=== PATIENT | female | born 1980 | race Caucasian/White ===

== ENCOUNTER 2019-10-05 06:22 | Emergency (ER) | payer OTHER, SELFPAY ==
--- NOTE | ~2019-10-05 | CT_ITS ---
EXAMINATION: CT abdomen pelvis w con DATE: 10/05/2019 08:41 INDICATION: Abdominal pain TECHNIQUE: Computed tomography (CT) of the abdomen and pelvis was performed with 100 cc Omnipaque 350 intravenous contrast. Automated exposure control and iterative reconstruction technique were employe d. Exam dose: 1559.42 mGy-cm total exam DLP. COMPARISON: None. FINDINGS: The lung bases are clear. Normal heart size. No pericardial or pleural effusion. There are multiple faceted gallstones measuring up to approximately 1 cm size. There is borderline ga llbladder wall thickening. There is minimal pericholecystic fat stranding. Acute sinusitis is not exc luded. Recommend clinical correlation and perhaps gallbladder ultrasound and/or radionuclide hepatobi liary scan. No hepatic space-occupying mass lesion or bile duct dilatation. No pancreatic mass lesion, calcificat ion or ductal dilatation. Normal splenic size. Normal morphology of the adrenal glands. Normal caliber of the abdominal aorta. The right kidney is absent. No left renal mass lesion or scarring or left-sided urinary tract calculu s or hydroureteronephrosis. The urinary bladder is unremarkable. Uterus and adnexal areas are unremar kable other than an IUD in the uterus. No intraperitoneal or retroperitoneal or pelvic mass lesion or adenopathy or ascites. Normal appendix. Diverticulosis of the sigmoid colon; no CT evidence of diverticulitis. No bowel obst ruction, bowel wall thickening, pneumatosis or intraperitoneal free air. Included skeletal structures are unremarkable. IMPRESSION: Multiple gallstones, borderline gallbladder wall thickening, mild pericholecystic fat st randing, suggesting possible acute cholecystitis. Recommend clinical correlation. Gallbladder ultraso und and/or radionuclide hepatobiliary scan may be of benefit as clinically appropriate. Diverticulosis of the sigmoid colon Absent right kidney Reviewed, dictated and finalized at [facility]. Reviewed, dictated and finalized at [facility]. IMPRESSION: Multiple gallstones, borderline gallbladder wall thickening, mild pericholecystic fat stranding, suggesting possible acute cholecystitis. Recomme nd clinical correlation. Gallbladder ultrasound and/or radionuclide hepatobilia ry scan may be of benefit as clinically appropriate. Diverticulosis of the sigmoid colon Absent right kidney
[2019-10-05 06:25] VITALS: BP 205/123; PULSE 100; RESP 18; TEMP 36.2; O2SAT 98
[2019-10-05 07:08] LABS: Basophils Absolute Auto 0.2 K/mm3 (0.0-0.1); Basophils Percent Auto 1.4 % (0.2-1.2); Eosinophils Absolute Auto 0.2 K/mm3 (0-0.3); Eosinophils Percent Auto 1.9 % (0-4.4); Hemoglobin 15.7 g/dL (12.0-15.0); Immature Granulocyte Absolute 0.09 K/mm3 (0.00-0.031); Immature Granulocyte Percent A 0.8 % (0-0.5); Lymphocytes Absolute Auto 1.38 K/mm3 (0.9-3.2); Lymphocytes Percent Auto 11.6 % (18.3-44.2); Mean Corpuscular HGB Conc 33.4 g/dl (32-36); Mean Corpuscular Hemoglobin 29.6 pg (26-34); Mean Corpuscular Volume 88.7 fl (80-100); Mean Platelet Volume 10.3 fl (7.4-10.4); Monocytes Absolute Auto 0.7 K/mm3 (0.1-0.6); Monocytes Percent Auto 5.7 % (2.6-8.5); Neutrophils Absolute Auto 9.4 K/mm3 (1.3-6.7); Neutrophils Percent Auto 78.6 % (45.5-73.1); Platelet Count Result 251 k/mm3 (150-375); Red Cell Distribution Width 13.3 % (11.5-14.5); White Blood Count 11.9 K/mm3 (4.5-10.0)
[2019-10-05 07:16] LABS: Add Urine Microscopic? YES; Appearance Urine Cloudy (Clear); Bilirubin Urine 1+ (Negative); Blood Urine Negative (Negative); Color Urine Amber (Yellow); Glucose Urine UA Negative (Negative); Hyaline Casts Urine 50+ /lpf; Ketones Urine Trace mg/dL (Negative); Leukocyte Esterase Ur 2+ LEU/UL (Negative); Mucus Urine Few /lpf; Nitrate Urine Negative (Negative); Protein Urine 3+ mg/dL (Negative); RBC Urine 21-50 /hpf (0-2); Specific Grav Ur 1.029 (1.001-1.035); Squamous Epithelial Cell Urine Many /hpf (Few); WBC Clumps Urine Present /HPF; WBC Urine >75 /hpf
[2019-10-05 07:21] LABS: Alanine Aminotransferase 85 U/L (4-35); Albumin Level 4.4 g/dL (3.5-5.1); Alkaline Phosphatase 245 U/L (38-126); Aspartate Amino Transferase 67 U/L (14-36); Bilirubin,Total 0.7 mg/dL (0.2-1.3); Blood Urea Nitrogen 18 mg/dL (7-17); Calcium 9.5 mg/dL (8.4-10.2); Carbon Dioxide 25 mmol/L (22-30); Chloride 103 mmol/L (98-107); Estimated CRCL calculation 81 ml/min; Estimated Glomerular Filt Rate 50; Glucose 204 mg/dL (65-105); Lipase 161 U/L (23-300); Potassium 4.5 mmol/L (3.4-5.0); Sodium 135 mmol/L (137-145)
[2019-10-05 07:22] VITALS: BP 146/90; PULSE 82; RESP 18; O2SAT 98
--- NOTE | 2019-10-05 07:54 | ED.ABDPAIN ---
HPI - Abdominal Pain General Chief Complaint: Abdominal Pain Stated Complaint: stomach pain Time Seen by Provider: 10/05/19 07:54 Source: patient Mode of arrival: ambulatory History of Present Illness HPI narrative: 39 years old white female, morbidly obese complaining of right upper quadrant pain woke patient up at 2 AM. Associated with nausea. Patient induced vomiting to feel better, currently the pain subsided. Patient reports that the pain radiating to right mid back. Patient denies any fever, chills,, respiratory symptoms or urinary symptoms. 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 Patient smokes and drinks few times a week. Last menstrual. 2 weeks ago Related Data Home Medications Medication Instructions Recorded Confirmed levothyroxine [Synthroid] 10/05/19 lisinopril 10/05/19 Allergies Allergy/AdvReac Type Severity Reaction Status Date / Time No Known Allergies Allergy Verified 10/05/19 06:32 Review of Systems Review of Systems: Narrative: CONSTITUTIONAL: Denies fever, chills, or sweats. EYES: Denies visual changes, redness, or discharge. ENT: Denies rhinorrhea, congestion, sore throat, or otalgia. CARDIOVASCULAR: Denies chest pain, palpitations, or edema. RESPIRATORY: Denies cough or dyspnea. GASTROINTESTINAL: Denies abdominal pain, nausea, vomiting, or diarrhea. GENITOURINARY: Denies dysuria or hematuria. SKIN: Denies rash or itching. MUSCULOSKELETAL: Denies back pain, joint pain, or myalgia. NEUROLOGIC: Denies headache, numbness, or weakness. PSYCHIATRIC: Denies anxiety or depression. Exam Narrative: Exam Narrative: General appearance: Well-developed, well-nourished Skin: Normal color Head: Normocephalic, nontraumatic Eyes: Clear conjunctiva ENT: Oropharynx normal, ears normal, nose normal Neck: Supple, nontender Chest and respiratory: Airway patent, no respiratory distress, no accessory muscle use Heart: Regular rate/rhythm Abdomen: Soft, mild tenderness right upper quadrant, no organomegaly, quiet bowel sounds Vascular: Normal peripheral pulses, normal capillary refill. Musculoskeletal: Normal range of motion, nontender back Neurologic: Alert and oriented ?3, EVENT EXECUTIVE is normal as tested, no gross motor deficit Course Course Emergency Course: Improving Reevaluation(s) Reevaluation #1: Patient declined to be hospitalized, telling me she have kids at home without supervision and would like to follow-up with the surgeon as outpatient. Date: 10/05/19 Time: 09:31 Consultations Consultation #1: DR ROY Patient can go home, low-fat diet, call office Sunday. Date: 10/05/19 Time: 09:21 Vital Signs Vital signs: Vital Signs Temperature 36.2 C L 10/05/19 06:25 Pulse Rate 100 10/05/19 06:25 Respiratory Rate 18 10/05/19 06:25 Blood Pressure 205/123 H 10/05/19 06:25 Pulse Oximetry 98 10/05/19 06:25 Temperature 36.2 C L 10/05/19 06:25 Pulse Rate 82 10/05/19 07:22 Respiratory Rate 18 10/05/19 07:22 Blood Pressure 146/90 H 10/05/19 07:22 Pulse Oximetry 98 10/05/19 07:22 MDM - Abdominal Pain MDM Narrative Medical decision making narrative: Patient have history of hypertension and hypothyroidism. Complaining of right upper quadrant pain, differential diagnosis is kidney stone, gallbladder issue, gastritis, pancreatitis, constipation, diverticulitis. Labs ordered, CT abdomen and pelvis ordered. Further plan to follow Differential Diagnosis Differential diagnosis: Likely abdominal pain, calculus of kidney, constipation, diverticulitis, gastroenteritis and pancreatitis Lab Data Result diagrams: 10/05/19 06:53 10/05/19 06:53 Labs: Lab Results 10/05/19
[2019-10-05] MEDS: SODIUM CHLORIDE 0.9% IV 1,000 ML 999 ML IV CONT (08:15)
[2019-10-05 09:33] VITALS: BP 138/79; PULSE 82; RESP 18; O2SAT 98
== END 2019-10-05 09:43 | disposition home or self-care (01) ==
PROVIDERS: Emergency Medicine; Emergency Provider Emergency Medicine; PCP Family Medicine Adolescent Medicine
DX: K81.9 Cholecystitis, unspecified (principal); Z90.5 Acquired absence of kidney; K57.30 Diverticulosis of large intestine without perforation or abscess without bleeding
CPT/HCPCS: 36415; 74177; 80053; 81001; 81025; 83690; 85025; 87086; 87088; 96360; 99284; J7030; Q9967

== ENCOUNTER 2020-05-05 20:18 | Emergency (ER) | payer OTHER, SELFPAY ==
[2020-05-05 20:25] VITALS: BP 156/119; PULSE 101; RESP 15; TEMP 37.2; O2SAT 98
--- NOTE | 2020-05-05 20:52 | ED.ABDPAIN ---
HPI - Abdominal Pain General Chief Complaint: Abdominal Pain Stated Complaint: having a gallbladder attack Time Seen by Provider: 05/05/20 20:51 Source: patient Mode of arrival: ambulatory Limitations: no limitations History of Present Illness HPI narrative: 39-year-old female Presents for evaluation of right upper quadrant abdominal pain gallbladder attack Notes she had an initial episode in September of this year and was seen in the ER here She had followed up with her PCP and had been trying to follow a low-fat diet, but was never evaluated by a surgeon She notes 5 or 6 subsequent episodes which were generally mild and brief however in the past week she has had 3 episodes of pain and today's was quite severe and lengthy She is nauseated but has not vomited, and no diarrhea or constipation and no urinary symptoms and no fever She is currently on her menstrual period Location: [facility] Related Data Home Medications Medication Instructions Recorded Confirmed levothyroxine [Synthroid] 10/05/19 lisinopril 10/05/19 Allergies Allergy/AdvReac Type Severity Reaction Status Date / Time No Known Allergies Allergy Verified 05/05/20 20:19 Review of Systems Review of Systems: All systems reviewed & are unremarkable except as noted in HPI and below Constitutional: Constitutional: Denies chills, Denies fatigue, Denies fever(s), Denies headache(s) and Denies weakness Eyes: Eyes: Reports no additional eye complaints and Denies change in vision ENT: Denies headache(s), Denies epistaxis, Denies nasal congestion and Denies sore throat Cardiovascular: Cardiovascular: Denies chest pain, Denies leg edema, Denies palpitations and Denies dyspnea Respiratory: Respiratory: Denies cough, Denies dyspnea and Denies wheezing Gastrointestinal: Gastrointestinal: Reports as per HPI and Reports no additional gastrointestinal complaints Genitourinary: Genitourinary: Denies hematuria, Denies urinary frequency and Denies dysuria Musculoskeletal: Musculoskeletal: Denies deformity, Denies arthralgias, Denies joint swelling, Denies muscle weakness and Denies numbness Integumentary/Breasts: Skin/Breast: Denies wounds Psychiatric: Psychiatric: Reports no additional psychiatric complaints Endocrine: Endocrine: Denies fatigue and Denies palpitations Hematologic/Lymphatic: Hematologic/Lymphatic: Denies easy bleeding and Denies easy bruising Allergic/Immunologic: Allergic/Immunologic: Denies wheezing [facility] Social History Social History Gender identity (if verbalized by the patient): Female Exam Const: General: no acute distress, well developed and awake Nutritional Appearance: obese Orientation/consciousness: patient oriented x3 (alert) HENMT: Head: normocephalic and atraumatic Ears: external ears normal General nose exam: No nasal discharge present and no epistaxis Face and sinus: face symmetric Eyes: Conjunctivae: conjunctivae normal Sclera: sclerae normal EOM: EOMs intact bilaterally Neck: Neck: normal visual inspection, supple and no JVD Chest: Chest palpation & inspection: deferred Resp: Effort & Inspection: normal respiratory effort Auscultation: clear to auscultation bilaterally, no rales, no rhonchi, no wheezes and other (BS =) Cardio: Rate: regular rate Rhythm: regular rhythm Heart sounds: no gallops and no murmurs GI: Inspection: normal to inspection GI Palp: Yes Soft to palpation, Yes Tenderness to palpation present (GI) (Mild epigastric), No Guarding due to palpation present (GI) and No Rebound tenderness present : General: Yes no CVA tenderness Back/Spine/Pelvis: Back: no CVA tenderness Thoracic/Lumbar Spine: thoracic and lumbar spine normal to inspection Skin: General skin exam: normal color and no rashes or lesions noted Neuro: General: patient oriented x3 (alert) and moves all extremities Cranial nerves: Yes facial symmetry Speech: normal speec
[2020-05-05 21:00] LABS: Add Urine Microscopic? YES; Appearance Urine Cloudy (Clear); Bilirubin Urine Negative (Negative); Blood Urine 3+ (Negative); Color Urine Red (Yellow); Glucose Urine UA Negative (Negative); Ketones Urine Negative (Negative); Leukocyte Esterase Ur Trace LEU/UL (Negative); Nitrate Urine Negative (Negative); Protein Urine 3+ mg/dL (Negative); RBC Urine >75 /hpf (0-2); Specific Grav Ur 1.017 (1.001-1.035); Squamous Epithelial Cell Urine Many /hpf (Few); Urobilinogen Urine Negative mg/dL (<2.0); WBC Urine 16-20 /hpf
[2020-05-05 21:36] LABS: Basophils Absolute Auto 0.2 K/mm3 (0.0-0.1); Basophils Percent Auto 1.5 % (0.2-1.2); Eosinophils Absolute Auto 0.4 K/mm3 (0-0.3); Eosinophils Percent Auto 3.2 % (0-4.4); Hematocrit 46.4 % (37.0-47.0); Hemoglobin 15.6 g/dL (12.0-15.0); Immature Granulocyte Absolute 0.07 K/mm3 (0.00-0.031); Immature Granulocyte Percent A 0.6 % (0-0.5); Lymphocytes Absolute Auto 2.15 K/mm3 (0.9-3.2); Lymphocytes Percent Auto 17.8 % (18.3-44.2); Mean Corpuscular HGB Conc 33.6 g/dl (32-36); Mean Corpuscular Hemoglobin 29.4 pg (26-34); Mean Corpuscular Volume 87.5 fl (80-100); Mean Platelet Volume 10.2 fl (7.4-10.4); Monocytes Absolute Auto 0.9 K/mm3 (0.1-0.6); Monocytes Percent Auto 7.8 % (2.6-8.5); Neutrophils Absolute Auto 8.3 K/mm3 (1.3-6.7); Neutrophils Percent Auto 69.1 % (45.5-73.1); Platelet Count Result 289 k/mm3 (150-375); Red Cell Distribution Width 13.8 % (11.5-14.5); White Blood Count 12.1 K/mm3 (4.5-10.0)
[2020-05-05 21:47] LABS: Alanine Aminotransferase 47 U/L (4-35); Albumin Level 4.1 g/dL (3.5-5.1); Alkaline Phosphatase 187 U/L (38-126); Anion Gap 9 mmol/L (8-16); Aspartate Amino Transferase 48 U/L (14-36); Bilirubin,Total 0.6 mg/dL (0.2-1.3); Blood Urea Nitrogen 12 mg/dL (7-17); Calcium 9.2 mg/dL (8.4-10.2); Carbon Dioxide 28 mmol/L (22-30); Chloride 100 mmol/L (98-107); Estimated Glomerular Filt Rate > 60; Glucose 132 mg/dL (65-105); Lipase 160 U/L (23-300); Potassium 4.1 mmol/L (3.4-5.0); Sodium 137 mmol/L (137-145)
[2020-05-05] MEDS: ONDANSETRON INJ 4 MG/2 ML VIAL IV PUSH (22:24)
[2020-05-05] MEDS: KETOROLAC 30 MG/ML VIAL (*BKC) IV PUSH (22:26)
[2020-05-05] MEDS: DICYCLOMINE HCL INJ 20 MG/2 ML VIAL IM (22:28)
[2020-05-05 22:46] VITALS: BP 161/100; PULSE 90; RESP 18; O2SAT 97
== END 2020-05-05 22:47 | disposition home or self-care (01) ==
PROVIDERS: Emergency Medicine; Emergency Provider Emergency Medicine; PCP Family Medicine Adolescent Medicine
DX: K80.50 Calculus of bile duct without cholangitis or cholecystitis without obstruction (principal)
CPT/HCPCS: 36415; 80053; 81001; 81025; 83690; 85025; 87086; 87088; 96372; 96374; 96375; 99284; J0500; J1885; J2405

== ENCOUNTER 2020-06-02 10:16 | Outpatient (CLI) | payer OTHER, SELFPAY ==
--- NOTE | ~2020-06-02 | US_ITS ---
EXAMINATION: US abdomen limited DATE: 06/02/2020 11:21 INDICATION: Calculus of gallbladder with chronic cholecystitis without obstruction. TECHNIQUE: Multiple grayscale and Doppler ultrasound images of the abdomen were obtained. COMPARISON: CT abdomen and pelvis 10/01/2019 FINDINGS: The visualized portions of the head and body of the pancreas are normal. The liver is servando l without focal lesion. There is normal flow in main portal vein. The gallbladder is normal in size a nd contains gallstones. No gallbladder wall thickening or sonographic Waldrop sign. The common duct is normal and measures 2 mm. IMPRESSION: 1. Cholelithiasis. No evidence of acute cholecystitis. Reviewed, dictated and finalized at [facility]. [employer] WORKER
== END 2020-06-02 10:17 | disposition home or self-care (01) ==
PROVIDERS: Family Provider Family Medicine Adolescent Medicine; PCP Family Medicine Adolescent Medicine; Visit Provider Surgery
DX: K80.10 Calculus of gallbladder with chronic cholecystitis without obstruction (principal)
CPT/HCPCS: 76705

== ENCOUNTER 2020-06-05 01:27 | Outpatient (CLI) | payer OTHER, SELFPAY ==
[2020-06-06 00:20] LABS: SARS-CoV-2 RNA PCR Negative
== END 2020-06-05 01:28 | disposition home or self-care (01) ==
LOC: ANHCOVIDDT 01:27
PROVIDERS: Family Provider Family Medicine Adolescent Medicine; PCP Family Medicine Adolescent Medicine; Visit Provider Surgery
DX: Z01.812 Encounter for preprocedural laboratory examination (principal); Z20.822 Contact with and (suspected) exposure to COVID-19
CPT/HCPCS: C9803; U0003; U0005

== ENCOUNTER 2020-06-07 09:26 | Outpatient (CLI) | payer OTHER, SELFPAY ==
--- NOTE | 2020-06-07 09:30 | ECG_ITS ---
Measurements Intervals [place] Rate: 94 P: 63 DE: 171 QRS: 73 QRSD: 77 T: 97 QT: 320 QTc: 401 Interpretive Statements SINUS RHYTHM NONSPECIFIC T-WAVE ABNORMALITY- DIFFUSE LEADS BASELINE ARTIFACT- I, II, III, AVR, AVL, AVF BORDERLINE ECG Electronically Signed On 06-07-2020 10:17:30 [employer]ER by Phu Boles D.O.
[2020-06-07 10:03] LABS: Alanine Aminotransferase 63 U/L (4-35); Albumin Level 4.3 g/dL (3.5-5.1); Alkaline Phosphatase 192 U/L (38-126); Amylase 73 U/L (30-110); Aspartate Amino Transferase 51 U/L (14-36); Bilirubin,Total 0.9 mg/dL (0.2-1.3); Lipase 204 U/L (23-300)
== END 2020-06-07 09:27 | disposition home or self-care (01) ==
LOC: ANHSURGERY 09:30
PROVIDERS: Family Provider Family Medicine Adolescent Medicine; PCP Family Medicine Adolescent Medicine; Visit Provider Surgery
DX: Z01.810 Encounter for preprocedural cardiovascular examination (principal); K80.10 Calculus of gallbladder with chronic cholecystitis without obstruction; I10 Essential (primary) hypertension
CPT/HCPCS: 36415; 80076; 82150; 83690; 86850; 86900; 86901; 93005

== ENCOUNTER 2020-06-09 00:11 | Day surgery (SDC) | payer OTHER, SELFPAY ==
[2020-06-03 10:14] VITALS: BMI 54.9
[2020-06-09] VITALS (11 sets, daily range): BP systolic 135–153; BP diastolic 78–97; PULSE 73–126; RESP 12–18; TEMP 36.3–36.6; O2SAT 94–100
[2020-06-09] MEDS: LACTATED RINGERS 1,000 ML 30 ML IV CONT ×2 (09:24→12:20)
[2020-06-09] MEDS: ACETAMINOPHEN 500 MG TABLET 1000 MG PO (09:25)
[2020-06-09] MEDS: KETOROLAC 15 MG/ML VIAL (*BKC) IV PUSH (09:25)
--- NOTE | 2020-06-09 10:06 | WPDANESEPPF ---
Anes - Initial Pre Proc Eval Procedure: Operation Date: 06/09/20 10:30 Proposed Procedures p Laparoscopic Cholecystectomy - Sridhar Thrasher MD Date/Time: 06/09/20 10:06 Surgeon: Sridhar Thrasher MD Pre Op Diagnosis: Chronic Cholecystitis With Stones Patient Data Age: 39 Gender: F Height: 5 ft 4 in Weight: 143.5 kg Last Vital Signs Temp 97.9 F 06/09/20 08:45 Pulse 126 H 06/09/20 08:45 Resp 18 06/09/20 08:45 BP 153/82 H 06/09/20 08:45 Pulse Ox 98 06/09/20 08:45 Allergies Allergy/AdvReac Type Severity Reaction Status Date / Time No Known Allergies Allergy Verified 06/09/20 08:30 Home Medications Medication Instructions Recorded Confirmed Type levothyroxine [Synthroid] 125 mcg PO DAILY 10/05/19 06/09/20 History lisinopril 20 mg PO DAILY 10/05/19 06/09/20 History Patient hx anesthesia problems: none Family hx anesthesia problems: none [facility] Past Medical History Medical History (Updated 06/09/20 @ 10:06 by Jean Mason MD) BMI 50.0-59.9, adult History of blood transfusion History of depression History of kidney cancer Hypertension Hypothyroid Surgical History Surgical History History of dental abscess History of dilation and curettage History of kidney removal right kidney Hx of tonsillectomy Family History Family History Father Hypertension Grandparent Liver cancer Lung cancer Social History Social History Smoking packs per day: 1 Smoking cigarettes per day: 20.0 Years smoked: 22 Smoking pack-years: 22.00 Smoking status: Current every day smoker Tobacco type: cigarettes Alcohol intake: current Drinks per week: 6 Living arrangements: with family 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, [employer] Gender identity (if verbalized by the patient): Female Spiritual care concerns: No Anes - Eval Final PreProcedure Day of Procedure 06/09/20 10:06 Patient weight: super morbidly obese Heart: regular rate and rhythm Lungs: clear to auscultation Airway: Mallampati scale class III Neurological: alert and oriented Last oral intake: >/= 8 hours ASA classification: IV Emergent: no Anesthetic plan: proceed Anesthesia type and monitoring: general ETT and standard monitoring Other findings: problems ventilating after surgery; denies problems with sux Informed Consent: The patient's anesthetic plan and its attendant risks and benefits were discussed with the patient/family/POA. Questions were solicited and answers provided to the satisfaction of the patient/family/POA.
--- NOTE | 2020-06-09 10:23 | WPDHPUPDATE1 ---
History and Physical Update Update Date/Time: 06/09/20 10:23 History and Physical has been reviewed, including an updated exam of the patient. There are NO changes in the patient's condition. Risks, benefits, and alternatives have been discussed and questions answered. Patient agrees to proceed with procedure.
[2020-06-09] MEDS: ceFAZolin 3 GM/D5W 100 ML 100 ML IVPB (10:28)
--- NOTE | 2020-06-09 10:36 | PM.PROC ---
Procedure Note - Detailed Date of procedure: 06/09/20 Pre-op diagnosis: Chronic Cholecystitis With Stones Chronic cholecystitis, cholelithiasis Post-op diagnosis: same Procedure performed: Laparoscopic cholecystectomy Description of procedure: The patient was taken to surgery and induced into general anesthesia. The abdomen was prepped and draped. Trocars were placed in the usual fashion using 0.5% Marcaine with epinephrine and applied Medical optical trocars. A 5 millimeter camera was used. The patient is very heavy and trocar placement was made more difficult by the thickness of the abdominal wall. Additionally, on placing our trocars, there were numerous adhesions of omentum to the anterior abdominal wall in the area of the falciform ligament and to the lower edge of the right lobe of the liver. These adhesions had to be taken down to gain access to the right upper quadrant. During the surgery, the right lower quadrant trocar was not able to retract the gallbladder fully. This had to be replaced more cephalad in the the right side of the abdomen to get proper retraction of the gallbladder to expose the cholecystohepatic triangle. Additionally, during the surgery, another trocar had to be placed in the left mid abdomen so that the omentum, duodenum and transverse colon could be retracted posteriorly. This was needed to expose the cholecystohepatic triangle as well. When we took down the adhesions and could finally get access to the gallbladder, there were numerous omental adhesions to the gallbladder into the liver. These were taken down sharply. Some cautery was required. Once we had the fundus of the gallbladder exposed, I was able to grasp the fundus and elevate it anteriorly. This facilitated dissection of more adhesions from the gallbladder further exposing the gallbladder. Adhesions had to be taken off the undersurface of the liver as well. 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 Eventually, enough adhesions were taken down that we could free the gallbladder and retracted anterosuperiorly and access the infundibulum. More adhesions to the gallbladder were taken down so that the cholecystohepatic triangle was exposed. Traction was placed on the infundibulum. The omentum and transverse colon were retracted posteriorly. Although exposure was difficult, we were then able to proceed with dissection of the cystic duct and cystic artery. The gallbladder wall was thickened and there were adhesions in the cholecystohepatic triangle all consistent with chronic inflammation. After the cystic duct and cystic artery were dissected out clearly, the gallbladder was dissected off the liver at its lower 3rd. Critical view was achieved. We securely clipped and divided the cystic duct and cystic artery. The gallbladder was then further retracted so that the peritoneal attachments to the liver could be divided. Once the gallbladder was freed entirely, it was placed in an Endo-Catch bag and retrieved through the 10 11 epigastric trocar site. The epigastric trocar was then replaced. We reviewed the right upper quadrant. It was irrigated and suctioned. All looked good with no evidence of bleeding or bile leakage. We then used the Maco cone and Maco-Susan suture pass device to close the fascia at the epigastric trocar site. The fascia was closed with an 0 Vicryl suture. We evacuated CO2 and removed the remaining trocar sleeves. Skin wounds were closed with subcuticular 4 O Monocryl skin suture. The wounds were dressed with Exofin surgical adhesive. Patient was awakened and taken to recovery in good condition. Sponge and needle counts were correct x2. Anesthesia: GETA and local (0.5% Marcaine with epinephrine) Surgeon: Sridhar Thrasher MD News Director: Daniel ROWLAND Estimated blood loss (mL): 20 Drains: No Packing: No Pathology: yes (Gallbladder) Complications: None Condition: stable Disposition: PACU F
[2020-06-09] MEDS: BUPIVACAINE/EPINEPHRINE 0.5% 10 ML VIAL 20 ML INFILTRATE (10:57)
[2020-06-09] MEDS: fentaNYL CITRATE INJ (*CRX) 100 MCG/2 ML VIAL 25 MCG IV PUSH (12:37)
[2020-06-09] MEDS: ONDANSETRON INJ 4 MG/2 ML VIAL IV PUSH (13:58)
[2020-06-09] MEDS: oxyCODONE HCL (*CRX) 5 MG TAB IR PO (14:48)
== END 2020-06-09 15:30 | disposition home or self-care (01) ==
PROVIDERS: Family Provider Family Medicine Adolescent Medicine; PCP Family Medicine Adolescent Medicine; Visit Provider Surgery
PROC: 0FT44ZZ Resection of Gallbladder, Percutaneous Endoscopic Approach (ICD-10-PCS; CPT 47562; principal; 2020-06-09 10:30)
DX: K80.10 Calculus of gallbladder with chronic cholecystitis without obstruction (principal); I10 Essential (primary) hypertension; E03.9 Hypothyroidism, unspecified; F17.210 Nicotine dependence, cigarettes, uncomplicated; E66.01 Morbid (severe) obesity due to excess calories; Z68.43 Body mass index [BMI] 50.0-59.9, adult
CPT/HCPCS: 47562; 36415; 80076; 82150; 83690; 86850; 86900; 86901; 88304; 93005; A9270; C1713; C9803; J0690; J1100; J1885; J2250; J2405; J2704; J2710; J3010; J7120; U0003; U0005

== ENCOUNTER 2020-06-11 11:33 | Outpatient (CLI) | payer OTHER, SELFPAY ==
--- NOTE | ~2020-06-11 | US_ITS ---
EXAMINATION: US venous doppler LE RT DATE: 06/11/2020 12:00 INDICATION: Right lower limb pain. TECHNIQUE: Grayscale ultrasound images without and with compression and Doppler ultrasound images of the right lower extremity veins were obtained. COMPARISON: None. FINDINGS: The visualized portions of right common femoral vein, profunda (deep) femoral vein, femoral vein, pop liteal vein, posterior tibial veins, and greater saphenous vein outflow are patent. IMPRESSION: 1. No deep venous thrombosis. Reviewed, dictated and finalized at location [facility]. 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
== END 2020-06-11 11:34 | disposition home or self-care (01) ==
PROVIDERS: PCP Family Medicine Adolescent Medicine; Visit Provider Surgery
DX: M79.604 Pain in right leg (principal)
CPT/HCPCS: 93971